=== PATIENT | female | born 1940 | race Caucasian/White ===

== ENCOUNTER → 2021-08-20 | Outpatient (CLI) | payer MEDICARE, OTHER ==
[~2021-08-20] MED LIST: ASPIR-LOW81 MG PO; CARDIZEM CD120 MG PO; CARDIZEM60 MG PO; CORDARONE 200M200 MG PO; ELIQUIS5 MG PO; LIPITOR TAB 1010 MG PO; LOPRESSOR 25 MG25 MG PO; LOPRESSOR50 MG PO; MIRALAX PACK 171 PKT PO; SOTALOL80 MG PO; VISTARIL 50 MG50 MG PO
== END ==
LOC: EXRD 09:13
DX: R42 Dizziness and giddiness (principal)
CPT/HCPCS: 93880

== ENCOUNTER 2021-11-27 10:25 | Emergency (ER) | payer MEDICARE, OTHER ==
[2021-11-27 12:45] LABS: HEMOGLOBIN 14.7 gm/dl (12.3-15.3); RED BLOOD COUNT 4.71 M/UL (4.00-5.10)
[2021-11-27 12:56] LABS: BUN/CREATININE RATIO 18 (0-10)
[2021-11-27] MEDS ORDERED: PROVENTIL HFA6.7 GM INH (13:56)
[2021-11-27] MEDS ORDERED: BENZONATATE100 MG PO (13:56)
== END 2021-11-27 14:16 | disposition left against medical advice (07) ==
LOC: ER1 10:25 → CDU 13:43
PROVIDERS: Emergency Medicine
DX: U07.1 COVID-19 (principal); I10 Essential (primary) hypertension; Z90.710 Acquired absence of both cervix and uterus; F17.200 Nicotine dependence, unspecified, uncomplicated
CPT/HCPCS: 36600; 70450; 71045; 80053; 82550; 82553; 82728; 82803; 84484; 85025; 86140; 93005; 96374; 96375; 99285; J0696; J1100